=== PATIENT | female | born 1990 | race Caucasian/White ===

== ENCOUNTER 2023-06-14 19:28 | Emergency (ER) | payer OTHER ==
[~2023-06-14] VITALS: Ht 167.6 cm; Wt 108.9 kg
--- NOTE | 2023-06-14 19:50 | NUR ---
PATIENT MARY FROM [facility] WITH COMPLAINTS OF ABDOMINAL AND CHEST PAIN. VITAL SIGNS WNL. MD AT BEDSIDE. Addendum: 06/14/23 at 2235 by GIOVANNI Patient discharged to home in stable condition. Written and verbal after care instructions given. Patient verbalizes understanding of instruction.IV removed. Catheter intact and site benign. Pressure and 4x4 applied to site. No bleeding noted.
--- NOTE | 2023-06-14 20:09 | NUR ---
BLOOD DRAWN AND SENT TO LAB
[2023-06-14 20:30] LABS: BASOPHILS % (AUTO) 0.7 % (0.0-2.0); EOSINOPHILS % (AUTO) 3.2 % (0.0-6.0); HEMATOCRIT 36 % (33-45); HEMOGLOBIN 12.6 g/dL (11.5-14.8); LYMPHOCYTES % (AUTO) 38.7 % (20.0-44.0); MEAN CORPUSCULAR HGB CONC 35 g/dl (31.0-36.0); MEAN CORPUSCULAR VOLUME 84 fL (82-100); MONOCYTES # (AUTO) 0.6 K/uL (0.1-1.30); MONOCYTES % (AUTO) 11.8 % (2.0-12.0); NEUTROPHILS # (AUTO) 2.4 K/uL (1.8-8.9); NEUTROPHILS % (AUTO) 45.6 % (43.0-81.0); PLATELET COUNT (AUTO) 334 K/uL (150-450); RED BLOOD CELL COUNT(AUTO) 4.25 MIL/uL (4.0-5.2); WHITE BLOOD COUNT (AUTO) 5.2 K/uL (4.3-11.0)
[2023-06-14 20:50] LABS: BILIRUBIN,URINE NEGATIVE (NEGATIVE); COLOR,URINE YELLOW (YELLOW); LEUKOCYTE ESTERASE ,URINE NEGATIVE (NEGATIVE); NITRITE, URINE NEGATIVE (NEGATIVE); PROTEIN,URINE NEGATIVE (NEGATIVE); UGLUCOSE NEGATIVE (NEGATIVE); UROBILINOGEN,URINE 0.2 EU/dL (0.2)
[2023-06-14 20:56] LABS: CALCIUM, SERUM 9.7 mg/dL (8.5-10.1); CARBON DIOXIDE 28 mmol/L (21-32); CHLORIDE 103 mmol/L (98-107); CREATININE 0.9 mg/dL (0.6-1.3); GLUCOSE 92 mg/dL (74-106); POTASSIUM 3.6 mmol/L (3.5-5.1); SODIUM SERUM 139 mmol/L (136-145); UREA NITROGEN, BLOOD 8 mg/dL (7-18)
[2023-06-14 21:03] LABS: ALANINE AMINOTRANSFERASE 74 U/L (12-78); ALBUMIN 3.5 g/dL (3.4-5.0); ALKALINE PHOSPHATASE 98 U/L (46-116); ASPARTATE AMINOTRANSFERASE 53 U/L (15-37); BILIRUBIN,DIRECT 0.2 mg/dL (0.0-0.2); BILIRUBIN,TOTAL 0.7 mg/dL (0.2-1.0); LIPASE 41 U/L (73-393); TOTAL PROTEIN, SERUM 6.7 g/dL (6.4-8.2)
[2023-06-14] MEDS ORDERED: LORAZEPAM 0.5 MG TABLET PO ONE (22:00)
[2023-06-14] MEDS ORDERED: LORAZEPAM 0.5 MG TABLET ONE (22:08)
[2023-06-14] MEDS ORDERED: OMEP40CA21 PO (22:09)
[2023-06-14 22:37] VITALS: BP 119/70; TEMP 98.2; O2SAT 97
== END 2023-06-14 22:38 | disposition hospice, inpatient (51) ==
LOC: ER 19:35
DX: R07.89 Other chest pain (principal); R10.13 Epigastric pain
CPT/HCPCS: 36415; 71045-TC; 80048-TC; 80076-TC; 83690-TC; 84484-TC; 84703-TC; 85025-TC; 85378-TC